=== PATIENT | male | born 1950 | race African-American/Black ===

== ENCOUNTER 2017-04-16 02:22 | Inpatient (IN) | payer OTHER ==
[~2017-04-16] VITALS: Ht 175.3 cm; Wt 90.7 kg
[~2017-04-16 02:22] MED LIST: ACTOS45 M1 PO; AMLODIPINE BESY10 M1 PO; ASPIRIN EC325 M2 PO; ATENOLOL100 M1 PO; ATORVASTATIN CA40 M1 PO; FLOMAX0.4 M1 PO; GLUCOVANCE 5-51 EACH; HYDROCHLOROTHIA25 M1 PO; JANUVIA100 M1 PO; LISINOPRIL40 M1 PO; POTASSIUM CHLO10 ME3 PO; RANITIDINE HCL150 MG PO; VIAGRA50 MG PO
--- NOTE | 2017-04-16 11:36 | Operative Report ---
Operative/Inv Procedure Report Surgery Date: 04/16/17 Name of Procedure: Cystoscopy and transurethral resection of bladder tumor Pre-Operative Diagnosis: Bladder tumor Post-Operative Diagnosis: Same Estimated Blood Loss: less than 50ml Surgeon/[employer]ified [employer] Engineer: Mikki BANKS, Vicki MCCOY MD,VICKI Cowan Anesthesia: general endotracheal tube Drains: 20 Mozambican two-way Ly Specimens: Bladder tumor chips Complications: None Condition: Stable Operative Indication: Two to two and a half centimeter bladder tumor on the right lateral wall discomfort during hematuria workup Operative/Procedure Note Note: The patient was taken to the cystoscopy room and identified. He is placed in supine position on the cystoscopy table. A timeout was executed appropriately with the patient awake. Gen. anesthesia was induced via LMA. He was then placed in the dorsal lithotomy position. Bimanual rectal exam revealed a mildly to moderately enlarged prostate. The bladder tumor was not palpable. He was then prepped and draped in usual fashion for cystoscopy. Surgical pause was executed appropriately. The 22 Mozambican cystoscope sheath was placed into the bladder under direct vision. Anterior urethra was normal. The prostatic urethra was 3.5 cm in length. There was trilobar prostatic hypertrophy with partial bladder outlet obstruction. Upon entering the bladder cystoscopy was performed. There was a 2-2 half centimeter bladder tumor on the right lateral wall. The mucosa appeared abnormal anterior to the tumor. There were no other papillary bladder tumors. Both ureteral orifices were normal in location and appearance. This point the bladder was left full and the cystoscope removed. The 26 Mozambican resectoscope sheath was placed into the bladder using the obturator. The working element was inserted. The bladder tumor was then resected. After the first couple of passes with the loop the obturator reflex occurred. At this point the patient was intubated and paralyzed. The bladder tumor was then completely resected without any further incident. All visible tumor was resected. The Rosa evacuator was used to remove all bladder tumor chips from the bladder. Base the bladder tumor was fulgurated. No significant bleeding was noted at this time other than some mild oozing from the prostatic urethra. Bladder was left full and resectoscope removed. A 20 Mozambican two-way Ly catheter was inserted and a leg bag applied. The urine was clear Discharge Disposition: PACU
[2017-04-16 16:42] VITALS: BP 162/84
[2017-04-16 22:31] VITALS: BP 132/62
[2017-04-17 01:03] VITALS: BP 168/80
[2017-04-17 03:03] VITALS: BP 170/78
[2017-04-17 07:41] VITALS: BP 188/84
--- NOTE | 2017-04-17 07:43 | PN- Urology ---
Subjective Subjective: No acute distress Objective Vital Signs and I&Os Vital Signs Date Time Temp Pulse Resp B/P B/P Pulse O2 O2 Flow FiO2 Mean Ox Delivery Rate 04/17 0303 98.4 71 18 170/78 98 Room Air 04/17 0103 98.5 64 18 168/80 98 Room Air 04/16 2231 98.1 61 20 132/62 100 Room Air 04/16 1642 97.9 56 18 162/84 97 Room Air 04/16 1642 97.9 56 18 162/84 97 Room Air Intake & Output 04/17 0800 04/17 0000 04/16 1600 04/16 0800 04/16 0000 04/15 1600 Intake Total 600 150 Output Total 1800 2350 Balance -1200 -2200 Intake, IV 600 150 Output, Urine 1800 2350 Patient 208 lb Weight Abd: soft and nontender Genitalia: 3-way pena in place. CBI running with light pink to clear drainage Extrems: no calf tenderness Assessment/Plan Assessment/Plan Imp: POD 1 s/p TURBT. Admitted for post op hematuria which seems to be improving Plan: Attempt to slow down CBI today Ambulate Core Measures/Miscellaneous Venous Thromboembolism VTE Risk Factors: Age > 40 VTE Contraindications: No Contraindications VTE Diagnosis: No Beta Gato Is Beta Gato a Home Med? Yes Antibiotics Is Patient on Antibiotics? No
[2017-04-17 09:16] LABS: ABSOLUTE BASOPHIL COUNT 0 /CUMM (0.0-0.2); ABSOLUTE EOSINOPHIL COUNT 0 /CUMM (0.0-0.7); ABSOLUTE GRANULOCYTE CT 7.5 /CUMM (1.4-6.5); ABSOLUTE LYMPH COUNT 1.4 /CUMM (1.2-3.4); ABSOLUTE MONOCYTE COUNT 1.1 /CUMM (0.10-0.60); BASOPHIL % 0.3 % (0.0-2.0); EOSINOPHIL % 0 % (0-5); GRANULOCYTE % 74.7 % (42.2-75.2); HEMATOCRIT 34.1 % (42-52); MEAN CORPUSCULAR HGB CONC 33.8 G/DL (33.0-37.0); MEAN CORPUSCULAR VOLUME 85.6 FL (80.0-94.0); MEAN PLATELET VOLUME 9.6 FL (7.4-10.4); PLATELET COUNT 176 /CUMM (130-400); RBC DISTRIBUTION WIDTH 15.2 % (11.5-14.5); RED BLOOD CELL CT 3.98 /CUMM (4.70-6.10); WHITE BLOOD CELL COUNT 10.1 /CUMM (4.8-10.8)
[2017-04-17 11:00] VITALS: BP 171/80
[2017-04-17 14:25] VITALS: BP 163/82
[2017-04-17 22:52] VITALS: BP 160/80
[2017-04-18 06:57] VITALS: BP 160/80
--- NOTE | 2017-04-18 07:49 | PN- Urology ---
Subjective Subjective: Had difficulty with clots obstructing pena last night Objective Vital Signs and I&Os Vital Signs Date Time Temp Pulse Resp B/P B/P Pulse O2 O2 Flow FiO2 Mean Ox Delivery Rate 04/18 0657 98.5 72 20 160/80 97 Room Air 04/17 2252 98.8 70 18 160/80 98 04/17 1425 98.9 66 20 163/82 98 Room Air 04/17 1100 98.4 67 20 171/80 97 Room Air 04/17 0929 70 168/82 04/17 0929 70 168/82 04/17 0929 70 168/82 04/17 0928 70 168/82 Intake & Output 04/18 0800 04/18 0000 04/17 1600 04/17 0800 04/17 0000 04/16 1600 Intake Total 600 600 150 Output Total 1850 3025 450 1800 2350 Balance -1850 -2425 -450 -1200 -2200 Intake, IV 600 150 Intake, Oral 600 Output, Urine 1850 3025 450 1800 2350 Patient 208 lb Weight Abd: soft and non tender Genitalia: 3-way pena in place. Not draining well Imp: s/p TURBT. Clot retention Plan: Pena irrigated and multiple clots obtained. CBI now running clear Will keep npo and check later. If urine gets bloody then will bring back to OR of cysto and fulgeraion Assessment/Plan Assessment/Plan see above Core Measures/Miscellaneous Venous Thromboembolism VTE Risk Factors: Age > 40 VTE Contraindications: No Contraindications VTE Diagnosis: No Beta Gato Is Beta Gato a Home Med? Yes Antibiotics Is Patient on Antibiotics? No
[2017-04-18 12:56] LABS: ABSOLUTE BASOPHIL COUNT 0 /CUMM (0.0-0.2); ABSOLUTE EOSINOPHIL COUNT 0 /CUMM (0.0-0.7); ABSOLUTE GRANULOCYTE CT 9.2 /CUMM (1.4-6.5); ABSOLUTE LYMPH COUNT 0.6 /CUMM (1.2-3.4); ABSOLUTE MONOCYTE COUNT 0.8 /CUMM (0.10-0.60); BASOPHIL % 0 % (0.0-2.0); EOSINOPHIL % 0.1 % (0-5); GRANULOCYTE % 86.3 % (42.2-75.2); HEMATOCRIT 33.9 % (42-52); MEAN CORPUSCULAR HGB 28.8 PG (27.0-31.0); MEAN CORPUSCULAR HGB CONC 33.5 G/DL (33.0-37.0); MEAN CORPUSCULAR VOLUME 86.2 FL (80.0-94.0); MEAN PLATELET VOLUME 9.8 FL (7.4-10.4); PLATELET COUNT 174 /CUMM (130-400); RBC DISTRIBUTION WIDTH 15.1 % (11.5-14.5); RED BLOOD CELL CT 3.94 /CUMM (4.70-6.10); WHITE BLOOD CELL COUNT 10.6 /CUMM (4.8-10.8)
[2017-04-18 13:48] VITALS: BP 164/80
--- NOTE | 2017-04-18 18:15 | Operative Report ---
Operative/Inv Procedure Report Surgery Date: 04/18/17 Name of Procedure: Cystoscopy, evacuation of blood clots, fulguration of bleeding Pre-Operative Diagnosis: Postoperative hematuria and clot retention Post-Operative Diagnosis: Same Estimated Blood Loss: 50ml to 100ml Surgeon/Legal File Clerk: Mikki BANKS, Vicki MCCOY MD,VICKI Cowan Anesthesia: general endotracheal tube Drains: 22 Niuean three-way hematuria catheter Specimens: None Complications: None Condition: Stable Operative Indication: This patient initially presented with gross hematuria. Workup showed a 2-2-1/2 cm bladder tumor on the right lateral bladder wall. On 04/16/2017 he underwent cystoscopy and transurethral resection of the bladder tumor. Due to some hematuria via his Ly catheter he was admitted to the hospital. Ly catheter was changed to a 3-way catheter for continuous irrigation. However the urine remained bloody and he developed blood clots. Therefore was decided to have him return to the operating room for clot evacuation and fulguration. Operative/Procedure Note Note: The patient was taken to the cystoscopy room and identified. He was placed in supine position on the cystoscopy table in a timeout was executed appropriately with the patient awake. Gen. anesthesia was induced via an endotracheal tube. He was then placed in dorsolithotomy position and prepped and draped in usual fashion for cystoscopy. Surgical pause was executed appropriately. The 22 Niuean cystoscope sheath was placed into the bladder under direct vision using the 30 lens. Anterior urethra was normal. Prostatic urethra did show trilobar hypertrophy with partial bladder outlet obstruction. Upon entering the bladder there was a large blood clot overlying the right lateral wall of the bladder which was the site of his previous bladder tumor resection. The cystoscope was removed and a 26 Niuean resectoscope sheath was placed in the bladder using obturator. Using the Rosa evacuator all blood clot was irrigated from the bladder. The bed of the bladder tumor resection was then seen. There was a small vessel bleeding as well as significant amount of oozing from the raw surface. Using electrocautery the vessel was cauterized. Then using the rollerball the entire bed of the bladder tumor resection was cauterized. At this point there was no bleeding noted. His blood pressure was 153/84. The bladder was left full and the cystoscope removed. A 22 Niuean three-way Ly catheter was inserted and continuous bladder irrigation started with clear drainage. She tolerated the procedure well and as completion was taken to the recovery room extubated in stable condition. Findings: A large blood clot overlying the base of his previous bladder tumor resection with small bleeding vessel in the base of the bladder tumor resection Discharge Disposition: PACU
[2017-04-18 20:37] VITALS: BP 150/80
[2017-04-18 22:15] VITALS: BP 154/76
[2017-04-19 06:55] VITALS: BP 170/82
--- NOTE | 2017-04-19 07:24 | PN- Urology ---
Subjective Subjective: Complains of bladder pressure. Likely from pena Objective Vital Signs and I&Os Vital Signs Date Time Temp Pulse Resp B/P B/P Pulse O2 O2 Flow FiO2 Mean Ox Delivery Rate 04/19 0655 99.0 74 22 170/82 96 Room Air 04/19 0600 Room Air 04/18 223 Room Air Room Air 04/18 2215 98.5 75 20 154/76 92 Room Air 04/18 2200 Room Air 04/18 2037 97.9 64 18 150/80 97 Room Air 04/18 1348 98.0 60 20 164/80 98 Room Air 04/18 1044 160/80 Intake & Output 04/19 0800 04/19 0000 04/18 1600 04/18 0800 04/18 0000 04/17 1600 Intake Total 240 360 600 Output Total 663 732 7967 1850 3025 450 Balance -660 -240 -1101 -1850 -2425 -450 Intake, Oral 240 360 600 Output, Stool 1 Output, Urine 101 235 5887 1850 3025 450 Patient 200 lb Weight Abd: soft and non tender. Bladder not palpable Genitalia: 3-way pena in place. CBI running at slow to moderate rate with clear drainage Laboratory Tests 04/19 04/18 0626 1144 Chemistry Sodium (137 - 145 mmol/L) Pending 139 Potassium (3.5 - 5.1 mmol/L) Pending 3.6 Chloride (98 - 107 mmol/L) Pending 100 Carbon Dioxide (22 - 30 mmol/L) Pending 30 Anion Gap (5 - 16) Pending 9 BUN (9 - 20 mg/dL) Pending 14 Creatinine (0.7 - 1.2 mg/dL) Pending 0.9 Estimated GFR (>60 ml/min) > 60 BUN/Creatinine Ratio (7 - 25 %) Pending 15.6 Hematology CBC w Diff Pending MAN DIFF ORDERED WBC (4.8 - 10.8 /CUMM) Pending 10.6 RBC (4.70 - 6.10 /CUMM) Pending 3.94 L Hgb (14.0 - 18.0 G/DL) Pending 11.4 L Hct (42 - 52 %) Pending 33.9 L MCV (80.0 - 94.0 FL) Pending 86.2 MCH (27.0 - 31.0 PG) Pending 28.8 RDW (11.5 - 14.5 %) Pending 15.1 H Plt Count (130 - 400 /CUMM) Pending 174 MPV (7.4 - 10.4 FL) Pending 9.8 Gran % (42.2 - 75.2 %) 86.3 H Lymphocytes % (20.5 - 51.1 %) 6.0 L Monocytes % (1.7 - 9.3 %) 7.6 Eosinophils % (0 - 5 %) 0.1 Basophils % (0.0 - 2.0 %) 0 L Absolute Granulocytes (1.4 - 6.5 /CUMM) 9.2 H Absolute Lymphocytes (1.2 - 3.4 /CUMM) 0.6 L Absolute Monocytes (0.10 - 0.60 /CUMM) 0.8 H Absolute Eosinophils (0.0 - 0.7 /CUMM) 0 Absolute Basophils (0.0 - 0.2 /CUMM) 0 Platelet Estimate (ADEQUATE) VERIFIED BY SMEAR Anisocytosis 1+ PUBS MCHC (33.0 - 37.0 G/DL) Pending 33.5 Assessment/Plan Assessment/Plan Imp: s/p cysto, clot evacuation and fulgeration of bleeding Plan: CBI turned off. Restart if hematuria recurs Hopeful for discharge tomorrow with pena Core Measures/Miscellaneous Venous Thromboembolism VTE Risk Factors: Age > 40 VTE Contraindications: No Contraindications VTE Diagnosis: No Beta Gato Is Beta Gato a Home Med? Yes Antibiotics Is Patient on Antibiotics? No
[2017-04-19 08:55] LABS: ABSOLUTE BASOPHIL COUNT 0 /CUMM (0.0-0.2); ABSOLUTE EOSINOPHIL COUNT 0 /CUMM (0.0-0.7); ABSOLUTE GRANULOCYTE CT 9.1 /CUMM (1.4-6.5); ABSOLUTE MONOCYTE COUNT 1.2 /CUMM (0.10-0.60); BASOPHIL % 0.2 % (0.0-2.0); EOSINOPHIL % 0.4 % (0-5); MEAN CORPUSCULAR HGB 28.8 PG (27.0-31.0); MEAN CORPUSCULAR HGB CONC 33.8 G/DL (33.0-37.0); MEAN CORPUSCULAR VOLUME 85.4 FL (80.0-94.0); MEAN PLATELET VOLUME 9.9 FL (7.4-10.4); PLATELET COUNT 183 /CUMM (130-400); RBC DISTRIBUTION WIDTH 14.8 % (11.5-14.5); RED BLOOD CELL CT 3.98 /CUMM (4.70-6.10); WHITE BLOOD CELL COUNT 11.3 /CUMM (4.8-10.8)
[2017-04-19 14:06] VITALS: BP 140/80
[2017-04-19 21:42] VITALS: BP 126/62
[2017-04-20 06:18] VITALS: BP 142/64
--- NOTE | 2017-04-20 06:49 | PN- Urology ---
Subjective Subjective: Intermittent bladder spasms Objective Vital Signs and I&Os Vital Signs Date Time Temp Pulse Resp B/P B/P Pulse O2 O2 Flow FiO2 Mean Ox Delivery Rate 04/20 0618 98.2 77 20 142/64 94 Room Air 04/20 0600 94 Room Air 04/20 0000 97 Room Air 04/19 2142 99.4 81 19 126/62 97 Room Air 04/19 1406 98.4 85 20 140/80 97 Room Air 04/19 1400 98 Room Air 04/19 0811 170/82 04/19 0811 170/82 04/19 0809 78 170/82 04/19 0655 99.0 74 22 170/82 96 Room Air Intake & Output 04/20 0804/20 0000 04/19 1600 04/19 0800 04/19 0000 04/18 1600 Intake Total 640 390 720 240 360 Output Total 233 432 2150 062 953 5727 Balance 365 90 -530 -660 -240 -1101 Intake, IV 400 150 400 Intake, Oral 240 240 320 240 360 Output, Stool 1 Output, Urine 773 499 4991 877 806 8014 Patient 200 lb 200 lb Weight Abd: soft and non tender Genitalia: 3-way pena in place. CBI is off. Urine is clear Extrems: no calf tenderness Assessment/Plan Assessment/Plan Imp: s/p TURBT for bladder tumor and subsequent cysto, clot evacuation and fulgeration Plan: discharge today with pena office f/u Sunday04/24/17 for pena removal Core Measures/Miscellaneous Venous Thromboembolism VTE Risk Factors: Age > 40 VTE Contraindications: No Contraindications VTE Diagnosis: No Beta Gato Is Beta Gato a Home Med? Yes Antibiotics Is Patient on Antibiotics? No
--- NOTE | 2017-04-20 06:57 | Discharge Summary ---
Visit Information Visit Dates Admission Date: 04/16/17 Discharge Date: 04/20/17 Hospital Course Course Attending Physician: VICKI MCCOY MD Primary Care Physician: CYNDEE DUNAWAY MD Hospital Course: He underwent TURBT on 04/16/17. Due to post op bleeding he had cystoscopy, clot evacuation and fulgeration of bleeding on 04/18/17. He is now discharge with a pena draining clear urine. Complications: Post op hematuria Allergies: Coded Allergies: acetaminophen (From PERCOCET) (SHAKING / GI UPSET 04/12/17) oxycodone (From PERCOCET) (SHAKING / GI UPSET 04/12/17) Significant Procedures: 1. TURBT 2. Cystoscopy, clot evacuation and fulgeration of bleeding Disposition Summary Disposition Principal Diagnosis: Bladder tumor Additional Diagnosis: Diabetes and hypertention Discharge Disposition: home or self care Discharge Instructions General Discharge Information Code Status: Full Code Patient's Diet: Diabetic diet Patient's Activity: Light only Follow-Up Instructions/Appts: Office visit Sunday04/24/17 for pena removal Medications at Discharge Discharge Medications: Continue taking these medications: Tamsulosin HCl (Flomax) 0.4 MG CAP.ER.24H 1 Capsule ORAL DAILY Amlodipine Besylate (Amlodipine Besylate) 10 MG TABLET 1 Tablet ORAL DAILY Aspirin (Ecotrin*) 325 MG TABLET.DR 1 Tablet ORAL DAILY Atenolol (Atenolol) 100 MG TABLET 1 Tablet ORAL DAILY Atorvastatin Calcium (Atorvastatin Calcium) 40 MG TABLET 1 Tablet ORAL DAILY Lisinopril (Lisinopril) 40 MG TABLET 1 Tablet ORAL DAILY Ranitidine (Ranitidine HCl) 150 MG TABLET 1 Tablet ORAL TWICE DAILY Sildenafil Citrate (Viagra) 50 MG TABLET 1 Tablet ORAL As Directed as needed for ERECTILE DYSFUNCTION Instructions: 1 hour before sexual activity Potassium Chloride (Potassium Chloride) 10 MEQ CAPSULE.ER 3 Capsule ORAL DAILY Glyburide/Metformin HCl (Glucovance 5-500 MG Tablet) 5 MG-500 MG TABLET TWICE DAILY Instructions: 3 TABS IN AM... 2 TABS IN PM Hydrochlorothiazide (Hydrochlorothiazide) 25 MG TABLET 1 Tablet ORAL DAILY Sitagliptin Phosphate (Januvia) 100 MG TABLET 1 Tablet ORAL DAILY Pioglitazone HCl (Actos) 45 MG TABLET 1 Tablet ORAL DAILY Copies To: CYNDEE DUNAWAY MD
[2017-04-20] MEDS ORDERED: TRAMADOL HCL50 M1 PO (11:43)
[2017-04-20 14:51] VITALS: BP 138/70
== END 2017-04-20 17:24 | DRG 909 ==
LOC: STS 02:22 → PACUH 13:35 → ENRESERV 14:23 → 2NB 16:23 → ENPENDDIS 04-20 06:51 → 2NB 04-20 17:24
PROVIDERS: Nurse Practitioner; ADMIT Urology
PROC: 0TBB8ZZ Excision of Bladder, Via Natural or Artificial Opening Endoscopic (ICD-10-PCS; principal; 2017-04-16)
PROC: 0W3R8ZZ Control Bleeding in Genitourinary Tract, Via Natural or Artificial Opening Endoscopic (ICD-10-PCS; 2017-04-18)
PROC: 0TCB8ZZ Extirpation of Matter from Bladder, Via Natural or Artificial Opening Endoscopic (ICD-10-PCS; 2017-04-18)
DX: N99.820 Postprocedural hemorrhage of a genitourinary system organ or structure following a genitourinary system procedure (principal); C67.2 Malignant neoplasm of lateral wall of bladder; I10 Essential (primary) hypertension; Y83.8 Other surgical procedures as the cause of abnormal reaction of the patient, or of later complication, without mention of misadventure at the time of the procedure; E11.9 Type 2 diabetes mellitus without complications; E78.5 Hyperlipidemia, unspecified; Z79.84 Long term (current) use of oral hypoglycemic drugs
CPT/HCPCS: 2NBSP; 36415; 82436; 88307; J0690; J1644; J7042